=== PATIENT | female | born 1950 | race African-American/Black ===

== ENCOUNTER 2016-05-01 07:28 | Day surgery (SDC) | payer OTHER, MEDICARE ==
--- NOTE | 2016-04-25 14:58 | HISTORY AND PHYSICAL E ---
History and Physical NAME: IMMANUEL VELEZ : 1950 AGE: 66Y ADMITTED: 05/01/2016 ROOM: CHIEF COMPLAINT: Patient for colon exam. HISTORY: Saw the patient on . She is on medication for arthritis, methotrexate. Her mom with colon cancer. Her father had motor vehicle accident. She has hypertension, high cholesterol. PHYSICAL EXAMINATION: VITAL SIGNS: Blood pressure 120/80, pulse 80, respirations 20. Temperature is 98. HEAD, EYES, EARS, NOSE AND THROAT: Normal. ABDOMEN: Soft. NEUROLOGIC EXAM: Negative. Colon 04 shows polyps. At that time she was seen by Dr. Richard. Vasquez. She did have biopsy. Rectal polyp was benign, hyperplastic polyp. The patient came back in year 2007. She did have colonoscopy in 2007. FAMILY HISTORY: Colon cancer. PAST SURGICAL HISTORY: Hysterectomy. PAST MEDICAL HISTORY: 1. Hypertension. 2. Hemorrhoids. 3. Rheumatoid arthritis. Colon showed benign-looking polyp rectum, lipoma ascending colon. Another colonoscopy was done in year 2015; colonoscopy shows as follows: Small polyps in the rectum. She did have ascending colon sessile polyp. Biopsy obtained and the biopsy came back adenoma polyp, transverse colon; adenoma polyp, cecum. CONCLUSIONS: 1. Patient did have lipoma, proximal ascending colon, adenoma polyp in the cecum. Transverse colon showed focal adenoma polyp as well. 2. Colorectal polyps. PLAN: Colon screening, 05/01. DICTATING PHYSICIAN: HAZEL DELGADO M.D. [id number] PHY#: [id number] ID: [id number] JOB#: [id number] ACCT: [id number] cc:HAZEL DELGADO M.D., RUTH M.D. >
[~2016-05-01 07:28] MED LIST: EPINEPHRINE INJ 1 MG/10 ML DISP.SYRIN ONE; FLUMAZENIL INJ 0.5 MG/5 ML VIAL IV ONE; GLUCAGON,HUMAN RECOMB 1 MG INJ ONE; GLYCOPYRROLATE INJ 0.4 MG/2 ML VIAL ONE; LIDOCAINE 2% JELLY 30 ML TUBE ONE; MIDAZOLAM 2 MG/2 ML INJ ONE; NALOXONE HCL INJ/PF 0.4 MG/1 ML SDV ONE; ONDANSETRON HCL INJ/PF 4 MG/2 ML SDV ONE; PROMETHAZINE HCL INJ 25 MG/1 ML VIAL ONE
[2016-05-01] MEDS: MIDAZOLAM 2 MG/2 ML INJ ONE ×2 (08:11→08:15)
[2016-05-01] MEDS: FENTANYL CITRATE INJ/PF 100 MCG/2 ML AMPUL ONE ×2 (08:13→08:20)
[2016-05-01 09:37] VITALS: BP 126/62
[2016-05-01 10:23] LABS: ABSOLUTE BASOPHILS # (AUTO) 0.1 10^3/uL (0.0-0.2); ABSOLUTE EOSINOPHILS # (AUTO) 0.1 10^3/uL (0.0-0.6); ABSOLUTE LYMPHOCYTES (AUTO) 1.8 10^3/uL (0.5-4.7); ABSOLUTE MONOCYTES (AUTO) 0.8 10^3/uL (0.1-1.4); ABSOLUTE NEUT (AUTO) 15.4 10^3/uL (1.7-8.2); BASOPHILS % (AUTO) 0.6 % (0-2); EOSINOPHILS % (AUTO) 0.6 % (0-6); HEMATOCRIT 34.7 % (36.0-47.0); HEMOGLOBIN 10.8 g/dL (12.0-15.5); HGB HCT DIFFERENCE -2.3; LYMPHOCYTES % (AUTO) 9.9 % (13-45); MEAN CORPUSCULAR HEMOGLOBIN 25.2 pg (27.0-33.4); MEAN CORPUSCULAR HGB CONC 31.2 g/dL (32.0-36.0); MEAN CORPUSCULAR VOLUME 81 fl (80-97); MONOCYTES % (AUTO) 4.2 % (3-13); RED CELL DISTRIBUTION WIDTH 17.1 % (11.5-14.0); SEGMENTED NEUTROPHILS % (AUTO) 84.7 % (42-78); WHITE BLOOD COUNT 18.2 10^3/uL (4.0-10.5)
--- NOTE | 2016-05-01 14:49 | OPERATIVE REPORT E ---
Operative Report NAME: IMMANUEL VELEZ : 1950 AGE: 66Y DATE OF SURGERY: 05/01/2016 ROOM: PREOPERATIVE DIAGNOSES: 1. Colon screening. 2. Family history of colorectal cancer. POSTOPERATIVE DIAGNOSES: 1. Sessile 2-3 mm pinpoint polyps in the cecum, benign looking. Biopsy obtained. 2. Mid ascending colon lipoma, biopsy obtained. 3. Proximal ascending lipoma, very classic lipoma, no biopsy obtained. 4. Sigmoid diverticulosis. 5. External hemorrhoids. TISSUE REMOVED, ALTERED, BIOPSIED: 1. Polyp cecum. 2. Biopsy lipoma mid ascending colon. ANESTHESIA: Versed 3, fentanyl 100. PROCEDURE: Rectal exam: External hemorrhoids. Sigmoid diverticulosis. Moderate amount of stool. Transverse colon: Normal. Ascending colon: Lipoma. Proximal ascending: Lipoma. Mid ascending: Small benign looking polyps cecum. CONCLUSION: 1. Benign looking polyp cecum. 2. Ascending colon lipoma. PLAN: 1. Awaiting biopsy. 2. Consider followup colonoscopy 1 year, pending biopsy results. DICTATING PHYSICIAN: HAZEL DELGADO M.D. [id number] PHY#: [id number] ID: [id number] JOB#: [id number] ACCT: [id number] cc:HAZEL DELGADO M.D., RUTH M.D. >
--- NOTE | 2016-05-01 14:50 | DISCHARGE SUMMARY E ---
Discharge Summary NAME: IMMANUEL VELEZ : 1950 AGE: 66Y ADMITTED: 05/01/2016 DISCHARGED: 05/01/2016 PROCEDURE: Colonoscopy and biopsy. HISTORY OF PRESENT ILLNESS: A 66-year-old female with a strong family history of colorectal malignancy. Patient does have history of adenoma polyps. Today's colonoscopy shows benign looking small polyps in the cecum, about 3 polyps adjacent to each other, 1-2 mm in size each. Biopsy obtained. 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 Difficult colonoscopy. PLAN: Full liquid diet today. Hold aspirin and nonsteroidal for 5 days. Awaiting biopsy results. Consider followup colonoscopy in 1 year. DICTATING PHYSICIAN: HAZEL DELGADO M.D. [id number] PHY#: [id number] ID: [id number] JOB#: [id number] ACCT: [id number] cc:HAZEL DELGADO M.D., RUTH M.D. >
--- NOTE | 2016-05-01 14:51 | DISCHARGE SUMMARY E ---
Discharge Summary NAME: IMMANUEL VELEZ : 1950 AGE: 66Y ADMITTED: 05/01/2016 DISCHARGED: 05/01/2016 HISTORY: The patient is a 66-year-old female who underwent colon screening today. She does have a history of rheumatoid arthritis, diabetes, hypertension. She does have a history of surgery on her trach and throat. Today's colonoscopy was successful to the cecum. Patient did have scars from total abdominal hysterectomy and her colon was successful to the cecum. DISCHARGE PLAN: Hold aspirin, nonsteroidal 5 days. Full liquid today. Soft, low-residue diet for 3 days. DICTATING PHYSICIAN: HAZEL DELGADO M.D. [id number] PHY#: [id number] ID: [id number] JOB#: [id number] ACCT: [id number] cc:HAZEL DELGADO M.D., RUTH M.D. >
== END 2016-05-01 10:15 | disposition home or self-care (01) ==
LOC: END 07:28
PROVIDERS: ATTEND Specialist
PROC: 0DBK8ZX Excision of Ascending Colon, Via Natural or Artificial Opening Endoscopic, Diagnostic (ICD-10-PCS; 2016-05-01)
PROC: 0DBH8ZX Excision of Cecum, Via Natural or Artificial Opening Endoscopic, Diagnostic (ICD-10-PCS; principal; 2016-05-01 08:00)
DX: D12.0 Benign neoplasm of cecum (principal); D17.5 Benign lipomatous neoplasm of intra-abdominal organs; D12.2 Benign neoplasm of ascending colon; K57.30 Diverticulosis of large intestine without perforation or abscess without bleeding; K64.8 Other hemorrhoids; K63.89 Other specified diseases of intestine; K66.0 Peritoneal adhesions (postprocedural) (postinfection); Z80.0 Family history of malignant neoplasm of digestive organs; M19.90 Unspecified osteoarthritis, unspecified site; E11.9 Type 2 diabetes mellitus without complications; I10 Essential (primary) hypertension; E78.00 Pure hypercholesterolemia, unspecified
CPT/HCPCS: 45380; 36415; 82962; 82378; 85025; 88305 ×2; J2250; J3010; J1610; J2405; J0171; J2310; J2550; J3490

== ENCOUNTER 2017-05-20 10:01 | Day surgery (SDC) | payer OTHER, MEDICARE ==
[~2017-05-20 10:01] MED LIST changes: -EPINEPHRINE INJ 1 MG/10 ML DISP.SYRIN ONE; -FLUMAZENIL INJ 0.5 MG/5 ML VIAL IV ONE; -GLUCAGON,HUMAN RECOMB 1 MG INJ ONE; -GLYCOPYRROLATE INJ 0.4 MG/2 ML VIAL ONE; -LIDOCAINE 2% JELLY 30 ML TUBE ONE; -MIDAZOLAM 2 MG/2 ML INJ ONE; -NALOXONE HCL INJ/PF 0.4 MG/1 ML SDV ONE; -ONDANSETRON HCL INJ/PF 4 MG/2 ML SDV ONE; -PROMETHAZINE HCL INJ 25 MG/1 ML VIAL ONE; +PROPOFOL INJ 200 MG/20 ML VIAL IV ONE
[2017-05-20] MEDS ORDERED: PROPOFOL INJ 200 MG/20 ML VIAL IV ONE (11:09)
[2017-05-20 11:51] VITALS: BP 120/65
--- NOTE | 2017-05-20 12:11 | Operative Report ---
Operative Report DATE OF SURGERY: 05/20/17 Operative Report: The risks, benefits and alternatives of the procedure including risks of bleeding, perforation requiring surgery are explained to the patient in detail and informed consent is obtained. Patient was taken back to the endoscopy suite and placed in the left, lateral decubital position. Timeout was called. Propofol medications administered. A rectal examination was done which did not reveal any masses, tears or fissures. An Olympus videoscope was inserted into the patient's rectum. The scope was then carefully advanced all the way to the cecum. The cecum was identified by the usual anatomical landmarks including the ileocecal valve as well as the appendiceal office. Prep is not as good. There are several areas where there has liquid fecal material some of it was able to be suctioned however some of it had to be left in place due to its viscosity. The scope was then sequentially pulled back via the various segments of the colon including the ascending colon, hepatic flexure, transverse colon, splenic flexure, descending colon finding to the rectosigmoid portions of the colon. Retroflexion maneuver is performed. PREOPERATIVE DIAGNOSIS: Personal history of polyps. Blood in stool. Family history of colon cancer. Change of bowel habits POSTOPERATIVE DIAGNOSIS: Small sessile cecal polyp that was removed via snare polypectomy. 3 polyps/possible lipomas. One in the descending colon that was removed via snare polypectomy, the other at the hepatic flexure status post biopsy, the third; in the proximal transverse colon status post biopsy. Internal hemorrhoids. Redundant colon. OPERATION: Colonoscopy with snare polypectomy. Colonoscopy with biopsy SURGEON: KERA MENDOZA ANESTHESIA: LMAC TISSUE REMOVED OR ALTERED: As noted above. COMPLICATIONS: None. ESTIMATED BLOOD LOSS: None. INTRAOPERATIVE FINDINGS: As described above. PROCEDURE: Patient tolerated procedure well. No immediate postprocedure complications are noted. Patient discharged in good condition. Discharge date 05/20/2017. Discharge diet: Regular. Discharge activity: Regular. 2-3 week follow-up to discuss current findings. 3-5 year surveillance colonoscopy. We will wait on pathology.
== END 2017-05-20 11:45 | disposition home or self-care (01) ==
LOC: END 10:01
PROVIDERS: ATTEND Internal Medicine Gastroenterology
PROC: 0DBH8ZX Excision of Cecum, Via Natural or Artificial Opening Endoscopic, Diagnostic (ICD-10-PCS; principal; 2017-05-20 13:00)
PROC: 0DBL8ZX Excision of Transverse Colon, Via Natural or Artificial Opening Endoscopic, Diagnostic (ICD-10-PCS; 2017-05-20 13:00)
DX: D12.0 Benign neoplasm of cecum (principal); D12.4 Benign neoplasm of descending colon; K64.8 Other hemorrhoids; K92.1 Melena; Z80.0 Family history of malignant neoplasm of digestive organs; M06.9 Rheumatoid arthritis, unspecified; I10 Essential (primary) hypertension; E78.00 Pure hypercholesterolemia, unspecified; E11.9 Type 2 diabetes mellitus without complications; Z87.891 Personal history of nicotine dependence; Z79.899 Other long term (current) drug therapy; Z79.84 Long term (current) use of oral hypoglycemic drugs; Z79.51 Long term (current) use of inhaled steroids
CPT/HCPCS: 45380; 45385; 82962; 88305 ×2; J2704; 812

== ENCOUNTER → 2020-05-09 | Outpatient (CLI) | payer OTHER, MEDICARE ==
[~2020-05-09] MED LIST changes: +COVID-19 VACCINE (PFIZER)/PF 30 MCG/0.3 ML VIAL IM ONE; +EPINEPHRINE INJ/PF 1 MG/1 ML AMPULE IM PRN; -PROPOFOL INJ 200 MG/20 ML VIAL IV ONE
== END ==
LOC: EMPHEALTH 17:09
PROVIDERS: ATTEND Internal Medicine
DX: Z23 Encounter for immunization (principal)
CPT/HCPCS: 91300